=== PATIENT | female | born 1985 | race Caucasian/White ===

== ENCOUNTER → 2018-11-21 | Outpatient (CLI) | payer OTHER ==
[~2018-11-21] MED LIST: ALLERGY MED PO; AMETHIA 0.15-01 EACH PO; BENTYL 10 MG CA10 M1 PO; BENZONATATE100 MG; HYOSCYAMIN125 MCG/5 PO
== END ==
LOC: M.RAD 11:08
DX: M20.11 Hallux valgus (acquired), right foot (principal); M77.31 Calcaneal spur, right foot

== ENCOUNTER 2021-01-29 16:25 | Emergency (ER) | payer OTHER ==
[~2021-01-29] VITALS: Ht 43.2 cm; Wt 117.9 kg
[2021-01-29] MEDS ORDERED: TRIAMCINOLONE A80 G2 TOP (16:39)
[2021-01-29] MEDS ORDERED: HYDROCHLOROTH12.5 M1 PO (16:39)
[2021-01-29] MEDS ORDERED: MEDROLDOSEPACK PO (16:39)
[2021-01-29 17:12] VITALS: BP 147/100
== END 2021-01-29 17:13 | disposition home or self-care (01) ==
LOC: M.ERS 16:25
DX: L25.5 Unspecified contact dermatitis due to plants, except food (principal); R03.0 Elevated blood-pressure reading, without diagnosis of hypertension; G43.909 Migraine, unspecified, not intractable, without status migrainosus; Z79.899 Other long term (current) drug therapy; Z90.49 Acquired absence of other specified parts of digestive tract